=== PATIENT | male | born 2000 | race Caucasian/White ===

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

== ENCOUNTER 2019-06-04 17:01 | Emergency (ER) | payer SELFPAY ==
[2019-06-04 17:02] VITALS: BP 153/80; PULSE 90; RESP 16; TEMP 36.1; O2SAT 97; BMI 23.7
--- NOTE | 2019-06-04 17:26 | ED.VIS.GEN ---
History of Present Illness Chief Complaint: Nausea/Vomiting Informant: Patient Onset: Today Maximum Severity: Mild Narrative: Patient reports no past history. Indicates went to bed feeling fine woke this morning with nausea then he believes he passed some dark or bloody stool x1, he is eating and drinking well he has had no exposure to tainted food or sick individuals he is no history of any type of elements of any kind specifically no GI elements he has no rectal pain no history of GI bleeding aspirin alcohol use works at [employer] Past Medical History - Allergies and Home Meds Allergies/Adverse Reactions: Allergies amphetamine [From Adderall] Adverse Reaction (Verified 06/04/19 17:02) Other VIOLENT dextroamphetamine [From Adderall] Adverse Reaction (Verified 06/04/19 17:02) Other VIOLENT trazodone Adverse Reaction (Verified 06/04/19 17:02) Unknown Primary Care Physician: Care Physician,No Primary [Primary Care Provider] - Past Medical History: None Smoking Status: Unknown if ever smoked Review of Systems General: Denies: Chills, Fever, Sweats Eyes: Denies: Visual changes - bilaterally, Diplopia ENT: Denies: Rhinorrhea, Sore throat Cardiovascular: Denies: Chest pain, Palpitations Respiratory: Denies: Dyspnea, Cough, Dyspnea on exertion Gastrointestinal: Reports: Nausea, - - Reports he had dark or bloody stool x1 today. Denies: Abdominal pain, Vomiting, Diarrhea, Melena, Hematochezia Genitourinary: Denies: Dysuria, Hematuria, Frequency Musculoskeletal: Denies: Back pain, Extremity Pain Skin: Denies: Rash, Wounds Neurological: Denies: Headache, Weakness, Numbness Physical Exam Vital Signs/Narrative: Vital Signs Temp Pulse Resp BP Pulse Ox 06/04/19 17:02 97 F L 90 16 153/80 H 97 General: Well nourished, Well developed, No Acute Distress Head: Normocephalic, Atraumatic Eyes: Perrl, EOMI ENT: Moist mucous membranes, No rhinorrhea Neck: Supple, Nontender Cardiovascular: Regular rate, Regular rhythm, No murmurs Respiratory: No distress, CTA bilaterally, Chest nontender Abdomen: Soft, Nontender, Nondistended, Normal bowel sounds Rectal: - - He does not wish to go rectal exam he wants to provide a stool sample Back: Nontender, Normal Inspection Extremities: Nontender, No edema Skin: Normal color, No rash Neurological: Alert, Oriented x3, Cranial nerves II-XII grossly intact, Normal Strength, Normal Sensation Psychological: Normal affect, Normal Mood Diagnostic/Tx/Re-eval - Medical Decision Making Patient is in no distress clinically looks well his vital signs are unremarkable his past history is unremarkable screening labs Screening labs are all unremarkable his vital signs remained unremarkable, his hemoglobin 16 he was unable to provide a stool sample at this time is comfort discharge home follow-up with his outpatient providers return for change in symptoms Home stable Final impression is reported rectal bleeding ED Disposition - Plan for ED Patient: Instructions: RECTAL BLEED, Stable Referrals: Care Physician,No Primary [Primary Care Provider] - Lia Macdonald [NON-STAFF] -
[2019-06-04 17:44] LABS: Absolute Lymphocyte Count 1.98 X10^3/uL (0.83-4.51); Absolute Neutrophil Count 3.9 X10^3/uL (2.0-7.7); Basophil# 0.06 X10^3/uL; Basophil% 0.9 % (0-1); Eosinophil# 0.06 X10^3/uL; Eosinophils% 0.9 % (0-5); Hematocrit 47.5 % (40-54); Hemoglobin 16.2 g/dL (13.0-16.5); Lymphocyte # 1.98 X10^3/ul (4.0); Lymphocyte % 30.5 % (19-41); Mean Corp Hgb Conc 34.1 g/dL (32-36); Mean Corpuscular Hgb 29.1 pg (27.0-32.0); Mean Corpuscular Volume 85.4 fL (80-94); Mean Platelet Vol. 9.4 fl (6.2-12.0); Monocyte# 0.47 X10^3/uL; Monocyte% 7.2 % (0-10); NRBC Flagged by Analyzer 0 % (0-5); Platelet Count 289 K/mm3 (150-450); RBC Distribution Width CV 11.9 % (11.6-14.6); RBC Distribution Width SD 37.1 fl (35.1-43.9); Red Blood Count 5.56 M/mm3 (4.6-6.2); White Blood Count 6.5 K/mm3 (4.4-11.0)
[2019-06-04 18:09] LABS: Anion Gap 4 (5-15); BUN 10 mg/dL (7-18); BUN/Creat Ratio 11.5 RATIO (10-20); Calcium,Total 8.9 mg/dL (8.5-10.1); Chloride 105 mmol/L (98-107); Creatinine, Serum 0.87 mg/dL (0.70-1.30); EST Glomerular Filtration Rate 119 mL/min (>60); Est Glom Filt Rate - Afr Amer 144 mL/min (>60); Estimated Creatinine Clearance 144.25 ml/min; Glucose 95 mg/dL (74-106); Potassium 3.8 mmol/L (3.5-5.1); Sodium Level 138 mmol/L (136-145)
== END 2019-06-04 18:37 | disposition home or self-care (01) ==
LOC: ED 17:41
PROVIDERS: Emergency Provider Emergency Medicine
DX: K62.5 Hemorrhage of anus and rectum (principal)
CPT/HCPCS: 80048; 85025; 99283; A4216